=== PATIENT | male | born 1970 | race Caucasian/White ===

== ENCOUNTER 2019-11-07 10:05 | Emergency (ER) | payer MEDICAID ==
--- NOTE | 2019-11-07 10:32 | EDM.PDOC ---
ED HPI GENERAL MEDICAL PROBLEM - General Chief Complaint: General Stated Complaint: "Not processing oxygen right" Time Seen by Provider: 11/07/19 10:12 Source of Information: Reports: Patient, RN History Limitations: Reports: No Limitations - History of Present Illness INITIAL COMMENTS - FREE TEXT/NARRATIVE: Pt states he was out on a weighted backpack hike and prior to going he drank his preworkout drink and coffee which is normal for him. Did not eat breakfast which he normally does not. About a 1/3 of a mile into it he felt like he wasn't "processing his oxygen right" [place] off. and then turned around and when he got home he felt like he was having an out of body experience and "just not right." He laid on the floor because he felt lightheaded but he did not pass out or lose consciousness. He denied any chest pain. He Questions if he had a seizure but he was alert the whole time. No confusion. Has not changed his routine at all. States that he had "a feeling of doom". Denies any recent stressful events or upcoming stress. Has had anxiety attacks in the past. See nurses note for additional comments. Onset: Today - Related Data Allergies Allergy/AdvReac Type Severity Reaction Status Date / Time codeine Allergy Other Verified 11/07/19 10:17 prochlorperazine Allergy Other Verified 11/07/19 10:17 [From Compazine] Home Meds: Home Meds . [No Known Home Meds] 07/04/19 [History] Past Medical History - Past Health History Medical/Surgical History: Denies Medical/Surgical History Social & Family History - Tobacco Use Smoking Status *Q: Never Smoker - Living Situation & Occupation Living situation: Reports: Single, with Significant Other ED ROS GENERAL - Review of Systems Review Of Systems: See Below Constitutional: Reports: Weakness. Denies: Fever, Chills HEENT: Reports: Vision Change (states it wasn't focused right.) Respiratory: Reports: Other ("I feel like I'm not processing my oxygen right."). Denies: Shortness of Breath Cardiovascular: Reports: No Symptoms Endocrine: Reports: No Symptoms GI/Abdominal: Reports: No Symptoms : Reports: No Symptoms Musculoskeletal: Reports: No Symptoms Skin: Reports: No Symptoms Neurological: Reports: Other (see HPI) ED EXAM, GENERAL - Physical Exam Exam: See Below Exam Limited By: No Limitations General Appearance: Alert, WD/WN, No Apparent Distress Eye Exam: Bilateral Eye: PERRL Ears: Normal External Exam, Normal Canal, Normal TMs Nose: Normal Inspection Throat/Mouth: Normal Inspection, Normal Oropharynx Head: Atraumatic, Normocephalic Neck: Normal Inspection, Supple, Non-Tender, Full Range of Motion Respiratory/Chest: No Respiratory Distress, Lungs Clear, Normal Breath Sounds, Chest Non-Tender Cardiovascular: Normal Peripheral Pulses, Regular Rate, Rhythm, No Edema, No Murmur GI/Abdominal: Normal Bowel Sounds, Soft, Non-Tender, No Organomegaly Back Exam: Normal Inspection, Full Range of Motion Extremities: Normal Inspection, Normal Range of Motion, No Pedal Edema, Normal Capillary Refill Neurological: Alert, Oriented, CN II-XII Intact, Normal Cognition Psychiatric: Flat Affect Skin Exam: Warm, Dry, Intact Course - Vital Signs Last Recorded V/S: Last Vital Signs Temp 97.9 F 11/07/19 10:05 Pulse 80 11/07/19 10:05 Resp 19 11/07/19 10:05 BP 144/92 H 11/07/19 10:05 Pulse Ox 100 11/07/19 10:05 - Orders/Labs/Meds Orders: Active Orders 24 hr Category Date Time Status ABG [BLOOD GAS ARTERIAL] [BG] Stat Lab 11/07/19 10:18 Ordered CBC WITH AUTO DIFF [HEME] Stat Lab 11/07/19 10:09 Ordered COMPREHENSIVE METABOLIC PN,CMP [CHEM] Stat Lab 11/07/19 10:09 Ordered CREATINE KINASE,CK [CHEM] Stat Lab 11/07/19 10:09 Ordered LACTATE DEHYDROGENASE,LDH [CHEM] Stat Lab 11/07/19 10:09 Ordered TROPONIN I [CHEM] Stat Lab 11/07/19 10:09 Ordered UA W/MICROSCOPIC [URIN] Stat Lab 11/07/19 10:10 Ordered EKG 12 Lead [EK] Stat Ther 11/07/19 10:09 Ordered Departure - Departure Time of Disposition: 11:07 Disposition: Home, Self-Care 01 Condition: Good Clinical Impression: Anxiety - Discharge Information *PRESCRIPTION DRUG MONITORING PROGRAM REVIEWED*: Not Applicable *COPY OF PRESCRIPTION DRUG MONITORING REPORT IN PATIENT GENARO: Not Applicable Additional Instructions: push fluids as much as possible get plenty of rest Eat well balanced diet recheck with primary care provider if any new concerns or if symptoms change. Sepsis Event Note (ED) - Evaluation Sepsis Screening Result: No Definite Risk - Focused Exam Vital Signs: Vital Signs Temp Pulse Resp BP Pulse Ox 11/07/19 10:05 97.9 F 80 19 144/92 H 100 - Problem List & Annotations (1) Anxiety SNOMED Code(s): 38266542 Code(s): F41.9 - ANXIETY DISORDER, UNSPECIFIED Status: Acute Priority: High - Problem List Review Problem List Initiated/Reviewed/Updated: Yes - My Orders Last 24 Hours: My Active Orders 11/07/19 10:09 CBC WITH AUTO DIFF [HEME] Stat COMPREHENSIVE METABOLIC PN,CMP [CHEM] Stat CREATINE KINASE,CK [CHEM] Stat LACTATE DEHYDROGENASE,LDH [CHEM] Stat TROPONIN I [CHEM] Stat EKG 12 Lead [EK] Stat 11/07/19 10:10 UA W/MICROSCOPIC [URIN] Stat 11/07/19 10:18 ABG [BLOOD GAS ARTERIAL] [BG] Stat - Assessment/Plan Last 24 Hours: My Active Orders 11/07/19 10:09 CBC WITH AUTO DIFF [HEME] Stat COMPREHENSIVE METABOLIC PN,CMP [CHEM] Stat CREATINE KINASE,CK [CHEM] Stat LACTATE DEHYDROGENASE,LDH [CHEM] Stat TROPONIN I [CHEM] Stat EKG 12 Lead [EK] Stat 11/07/19 10:10 UA W/MICROSCOPIC [URIN] Stat 11/07/19 10:18 ABG [BLOOD GAS ARTERIAL] [BG] Stat
[2019-11-07 10:37] LABS: BICARBONATE,ARTERIAL 18.1 mm/L (22.0-26.0); O2 DELIVERY DEVICE ROOM AIR; O2 SATURATION ARTERIAL 99 % (95-98); PCO2 ARTERIAL 20 mm/Hg0 (35-45); PO2 ARTERIAL 96 mm/Hg (80-100)
[2019-11-07 10:41] LABS: CHLORIDE,CL 101 mEq/L (98-106); SODIUM,NA 137 mEq/L (136-145)
== END 2019-11-07 11:14 | disposition home or self-care (01) ==
LOC: CC.ED 10:05
DX: F41.9 Anxiety disorder, unspecified (principal); Z88.5 Allergy status to narcotic agent; Z88.8 Allergy status to other drugs, medicaments and biological substances
CPT/HCPCS: 36415; 36600; 80053; 80305-QW; 81001; 82550; 82803; 83615; 84484; 85025; 93005; 99284-25